=== PATIENT | male | born 1950 | race Caucasian/White ===

== ENCOUNTER 2024-08-08 08:21 | Outpatient (CLI) | payer BC ==
[2024-08-08] MEDS ORDERED: Iopamidol 370 76% 100 ML VIAL ONE (10:54)
== END 2024-08-08 08:22 | disposition home or self-care (01) ==
LOC: CSHCT 08:21
PROVIDERS: ATTEND Student in an Organized Health Care Education/Training Program
DX: I65.29 Occlusion and stenosis of unspecified carotid artery (principal); I67.1 Cerebral aneurysm, nonruptured; Z98.890 Other specified postprocedural states; I65.01 Occlusion and stenosis of right vertebral artery
CPT/HCPCS: 70498; 82565